=== PATIENT | female | born 1960 | race Caucasian/White ===

== ENCOUNTER 2017-09-10 06:43 | Observation (INO) | payer BC ==
[2017-09-10] MEDS: BUPIVACAINE 0.25% (MPF) 30 ML INJ INJ
[2017-09-10] MEDS: NEOMYC/POLYMYX/BACIT 30 GM OINT TOP
[~2017-09-10 06:43] MED LIST: CEFAZOLIN 2 GM/50 ML (PMX) 50 ML IVPB; SOD CHLORIDE 0.9% 1,000 ML IV
[2017-09-10] MEDS ORDERED: CEFAZOLIN 1 GM INJ (07:00)
[2017-09-10] MEDS ORDERED: BUPIVACAINE 0.25% (MPF) 30 ML INJ (08:04)
[2017-09-10] MEDS ORDERED: PROPOFOL 20 ML (08:10)
[2017-09-10] MEDS ORDERED: HYDROmorphONE 2 MG/ML SYG (08:10)
[2017-09-10] MEDS ORDERED: SUCCINYLCHOLINE CHLORIDE 100 MG/5 ML SYG IV (08:10)
[2017-09-10] MEDS ORDERED: ONDANSETRON 4 MG INJ (08:11)
[2017-09-10] MEDS ORDERED: NEOMYC/POLYMYX/BACIT 30 GM OINT (08:51)
[2017-09-10] MEDS: HYDROmorphONE (0.2 MG/ML) 10ML SYG IV ×3 (09:28→09:45)
[2017-09-10] MEDS ORDERED: HYDROmorphONE (0.2 MG/ML) 10ML SYG IV (09:30)
[2017-09-10] MEDS ORDERED: ONDANSETRON 4 MG INJ IV (09:30)
[2017-09-10] MEDS ORDERED: LABETALOL HCL 20MG INJ IV (09:30)
[2017-09-10] MEDS ORDERED: hydrALAzine 20 MG INJ IV (09:30)
[2017-09-10] MEDS: HYDROCODONE/APAP (5/325) TAB PO (09:47)
[2017-09-10] MEDS ORDERED: morphine 2 MG INJ IV (11:00)
[2017-09-10] MEDS ORDERED: HYDROCODONE/APAP (5/325) TAB PO (11:00)
[2017-09-10] MEDS ORDERED: CEFAZOLIN 2 GM/50 ML (PMX) 50 ML IVPB (11:00)
== END 2017-09-10 19:37 | disposition home or self-care (01) ==
LOC: SDS 06:43 → REC 10:31
PROVIDERS: Surgery
DX: L72.11 Pilar cyst (principal); E11.9 Type 2 diabetes mellitus without complications; E78.00 Pure hypercholesterolemia, unspecified; I10 Essential (primary) hypertension
CPT/HCPCS: 14020; 82962; 88307